=== PATIENT | female | born 1975 | race Two or more races ===

== ENCOUNTER 2021-05-07 05:56 | Emergency (ER) | payer OTHER ==
[~2021-05-07] VITALS: Ht 160 cm; Wt 59.0 kg
[2021-05-07 05:56] VITALS: BP 123/59
[2021-05-07] MEDS ORDERED: GLUCAGON HYDROCHLORIDE (RDNA) 1 MG VIAL IM ONE (07:45)
[2021-05-07] MEDS ORDERED: LIDOCAINE VISCOUS 2% 15ML UD PO ONE (07:45)
== END 2021-05-07 09:26 | disposition home or self-care (01) ==
LOC: ER 05:56
DX: T18.108A Unspecified foreign body in esophagus causing other injury, initial encounter (principal); Z88.0 Allergy status to penicillin; Z88.2 Allergy status to sulfonamides; X58.XXXA Exposure to other specified factors, initial encounter; Y93.89 Activity, other specified; Y92.89 Other specified places as the place of occurrence of the external cause; Y99.8 Other external cause status
CPT/HCPCS: 70360; 96372; 99283; J1610